=== PATIENT | male | born 1990 | race Caucasian/White ===

== ENCOUNTER 2019-08-04 08:19 | Emergency (ER) | payer OTHER ==
[~2019-08-04] VITALS: Ht 167.6 cm; Wt 84.0 kg
[2019-08-04 08:31] VITALS: BP 114/53
[2019-08-04] MEDS ORDERED: SODIUM CHLORIDE 0.9% 1,000ML IVBOLUS ONE (09:00)
[2019-08-04] MEDS ORDERED: ONDANSETRON 2MG/ML, 2ML IVPush ONE (09:00)
[2019-08-04 09:01] LABS: BASOPHILS # (AUTO) 0.02 x10^3/uL (0-0.1); BASOPHILS % (AUTO) 0 % (0-1); EOSINOPHILS # (AUTO) 0.07 x10^3/uL (0-0.4); EOSINOPHILS % (AUTO) 1 % (1-7); LYMPHOCYTES % (AUTO) 14 % (22-44); MD NO; MEAN CORPUSCULAR HEMOGLOBIN 29.1 pg (27.5-34.5); MEAN CORPUSCULAR HGB CONC 33.7 g/dL (33.2-36.2); MEAN CORPUSCULAR VOLUME 86.3 fL (81-97); MEAN PLATELET VOLUME 7.3 fL (7.4-10.4); MONOCYTES # (AUTO) 0.25 x10^3/uL (0.2-0.8); MONOCYTES % (AUTO) 3 % (2-9); NEUTROPHILS # (AUTO) 7.47 x10^3/uL (1.8-6.8); NEUTROPHILS % (AUTO) 82 % (42-75); PLATELET COUNT 261 x10^3/uL (130-400); RED BLOOD COUNT 5.61 x10^6/uL (4.38-5.82); RED CELL DISTRIBUTION WIDTH 12.7 % (9.4-14.8)
[2019-08-04] MEDS ORDERED: ONDANSETRON 2MG/ML, 2ML ONE (09:01)
[2019-08-04] MEDS ORDERED: MORPHINE SULFATE 4 MG/ML, 1ML ONE ×2 (09:02→09:15)
[2019-08-04] MEDS: MORPHINE SULFATE 4 MG/ML, 1ML IVPush PRN ×2 (09:14→09:20)
[2019-08-04 09:15] LABS: ALBUMIN 4.2 g/dL (3.4-5.0); ANION GAP 8 mmol/L (5-15); CALCIUM 8.5 mg/dL (8.5-10.1); CHLORIDE 109 mmol/L (98-107); CREATININE 1.19 mg/dL (0.7-1.3)
--- NOTE | 2019-08-04 09:26 | NUR ---
PT HAS RLQ PAIN MEDICATED W MS THAT DID NOT RESOLVE HIS PAIN GIVEN SECOND DOSE MS WILL CONTINUE TO MONITOR PAIN ERPA AWARE
--- NOTE | 2019-08-04 10:32 | NUR ---
PT TO CT AT THIS TIME
[2019-08-04] MEDS ORDERED: OMNIPAQUE 350 MG/ML, 100ML BOTTLE ONE (10:42)
--- NOTE | 2019-08-04 11:08 | NUR ---
ERP AGGEES TO LET PT DRINK WATER TO PROVIDE UA
[2019-08-04] MEDS ORDERED: KETOROLAC 30 MG/1 ML IVPush ONE (11:30)
--- NOTE | 2019-08-04 11:47 | NUR ---
PT TO BR AT THIS TIME
[2019-08-04 12:21] LABS: MICROSCOPIC INDICATED
[2019-08-04 12:33] LABS: CULTURE INDICATED? NO
[2019-08-04] MEDS ORDERED: KETOROLAC 30 MG/1 ML ONE (12:36)
== END 2019-08-04 12:57 | disposition home or self-care (01) ==
LOC: ED 09:24
DX: N20.1 Calculus of ureter (principal); R11.0 Nausea
CPT/HCPCS: 36415; 74177; 80048; 81001; 82040; 85025; 96374; 96375; 99284; J2270; J2405; J7030; Q9967